=== PATIENT | female | born 1985 | race Caucasian/White ===

== ENCOUNTER 2023-08-10 21:42 | Emergency (ER) | payer MEDICAID, SELFPAY ==
--- NOTE | ~2023-08-10 | XR_ITS ---
EXAMINATION: XR BILATERAL HIPS WITH AP PELVIS CLINICAL INFORMATION: Fall. Nonverbal patient. Rule out fracture. COMPARISON: None available. TECHNIQUE: AP and frog-leg lateral views of each hip and an AP view of the pelvis. FINDINGS: Bones are osteopenic. No acute fracture or malalignment. Mild osteoarthritis is present in both hips with large acetabular osteophytes contributing to acetabular over coverage. SI joints are unremarkable. Phleboliths are present in the pelvis. No acute soft tissue findings. XR/XR hip BI w PEL1V IMPRESSION: 1. No acute fracture or malalignment identified in the pelvis and hips. 2. Mild osteoarthritis in the hips.
--- NOTE | ~2023-08-10 | CT_ITS ---
EXAMINATION: CT HEAD WITHOUT CONTRAST CLINICAL INFORMATION: Headache status-post fall. COMPARISON: CT brain dated 12/02/2016. TECHNIQUE: Contiguous axial imaging was performed from the skull base to vertex without intravenous administration of contrast. Multiplanar reformatted images are submitted. This CT examination was performed using dose optimization techniques as appropriate, variously including the following: *Automated exposure control *Adjustment of mA and/or kV according to patient size (this includes techniques or standardized protocols for targeted exams where dose is matched to indication/reason for exam; i.e. extremities or head) *Use of iterative reconstruction technique DLP: 1314 mGy-cm (head and cervical spine) FINDINGS: There is no acute intracranial hemorrhage or evidence of territorial infarction. No abnormal mass effect or midline shift is seen. Zamudio to white matter differentiation is well preserved. There is no abnormal attenuation within the brain parenchyma. The ventricles are normal in size. No extra-axial fluid collections are identified. There is an old, healed left frontoparietal craniotomy. Please correlate with the patient's past surgical history. The calvarium and scalp soft tissues are otherwise unremarkable. The middle ear cavity and mastoid air cells are clear. The visualized paranasal sinuses are clear. CT/CT cervical spine wo IV con IMPRESSION: No acute intracranial pathology. EXAMINATION: CT CERVICAL SPINE WITHOUT CONTRAST CLINICAL INFORMATION: Neck pain status-post trauma. COMPARISON: None available. TECHNIQUE: Contiguous axial imaging was performed through the cervical spine without intravenous administration of contrast. Multiplanar reformatted images are submitted. This CT examination was performed using dose optimization techniques as appropriate, variously including the following: *Automated exposure control *Adjustment of mA and/or kV according to patient size (this includes techniques or standardized protocols for targeted exams where dose is matched to indication/reason for exam; i.e. extremities or head) *Use of iterative reconstruction technique DLP: As above FINDINGS: Vertebral body heights are normal. There is mild reversal of the normal lordotic curvature. At C4-C5 and C5-C6, there is moderate disc space narrowing and spondylosis. The remaining disc spaces are well-maintained. No acute fracture or spondylolisthesis is seen. The posterior elements are intact. There is no prevertebral soft tissue swelling. The dens is intact. IMPRESSION: 1. No acute fracture or spondylolisthesis is seen. 2. At C4-C5 and C5-C6, there is moderate degenerative disc disease and spondylosis. 3. There is mild reversal of the normal lordotic curvature, which can be associated with muscle spasm. Fleischner guidelines were followed.
[2023-08-10 21:49] VITALS: BP 112/80; BP 113/92; PULSE 91; PULSE 95; RESP 16; TEMP 36.7; O2SAT 98; BMI 39.7
--- NOTE | 2023-08-10 22:06 | PC.NURSE ---
pt is on menstrual cycle, periwek in place
--- NOTE | 2023-08-10 22:12 | ED.FALL ---
HPI - Fall General Chief Complaint: Fall Stated Complaint: fall from bed, per ems Time Seen by Provider: 08/10/23 22:05 Source: patient Mode of arrival: ambulatory Limitations: no limitations History of Present Illness HPI Narrative: patient comes to the emergency room from [facility]. Earlier today, patient was found on the floor. Patient has history of lower in herself to the ground without falling. However, since she was found on the floor and it was unwitnessed, patient was sent to the emergency room for further evaluation. Patient has no complaints. According to [facility] medication notes, patient is not on blood thinners. Patient has history of chronic CVA and unable to give significant history Related Data Allergies Allergy/AdvReac Type Severity Reaction Status Date / Time Fish Containing Products Allergy Unknown UNKNOWN Unverified 08/04/20 17:50 latex [Latex] Allergy Unknown UNKNOWN Unverified 08/04/20 17:50 shellfish derived Allergy Unknown UNKNOWN Unverified 08/04/20 17:50 [SHELLFISH DERIVED] Latex Gloves Allergy Unknown Uncoded 07/08/14 00:00 Seafood Allergy Unknown UNKNOWN Uncoded 08/04/20 17:50 Review of Systems Review of Systems: Yes Unobtainable due to mental condition ( chronic CVA) [facility] Past Medical History Medical History (Updated 08/10/23 @ 23:09 by Radha Mcdowell MD) CVA (cerebral vascular accident) Social History Social History Advance Directives: No Advance Directives Information Provided: No Physical Exam Vital Signs: Vital Signs: Last Vital Signs Temp 98.1 F 08/10/23 21:49 Pulse 91 08/10/23 21:49 Resp 16 08/10/23 21:49 BP 113/92 H 08/10/23 21:49 O2 Del Method Room Air 08/10/23 21:49 BMI result Body Mass Index 39.7 Const: Other: Appearance: Alert. No acute distress. Eyes: Pupils equal, round and reactive to light. ENT: Pharynx normal. Neck: on C-spine precautions, no palpable step-offs, patient does not seem to have any pain on palpation CVS: Normal heart rate and rhythm. Pulses normal. Normal S1 and S2 Respiratory: No respiratory distress. Breath sounds normal. No Wheezing. No rales Abdomen: Soft and nontender. No rigidity. No distention. Skin: Skin warm and dry. Normal skin color. Normal skin turgor. Extremities: No lower extremity edema. No Lacerations. No Rash questionable pain on hip flexion and extension on the right Neuro: patient unable to participate in cranial nerve assessment Psych: calm, cooperative, Course Course Course Narrative: - patient unable to give any history - cervical spine and brain CT pending - x-ray of the hips right and left pending - patient does not seem to be in any pain. Medical Decision Making Medical Decision Making [facility] Narrative: - My interpretation head CT: No intracranial bleed - my interpretation of x-ray of the hip and pelvis: Normal alignment, no fracture, osteoarthritis bilaterally Differential Diagnosis Differential Diagnoses: The differential diagnosis associated with the presentation includes ( intracranial bleed, cervical spine fracture, hip fracture, contusion) Admission/Observation Consideration of admission/observation: Escalation of care including admission/observation considered ( given the patient's presentation, on arrival admission was considered) Independent Interpretation I performed an independent interpretation of an: Plain X-Ray and CT Scan Radiology Impression Discussion of test interpretation with radiology: I have reviewed the radiologist's reading. Radiologist Impression: FINDINGS: There is no acute intracranial hemorrhage or evidence of territorial infarction. No abnormal mass effect or midline shift is seen. Zamudio to white matter differentiation is well preserved. There is no abnormal attenuation within the brain parenchyma. The ventricles are normal in size. No extra-axial fluid collections are identified. There is an old, healed left frontoparietal craniotomy. Please correlate with the patient's past surgical history. The calvarium and scalp soft tissues are otherwise unremarkable. The middle ear cavity and mastoid air cells are clear. The visualized paranasal sinuses are clear. CT/CT head/brain wo IV con IMPRESSION: No acute intracranial pathology. EXAMINATION: CT CERVICAL SPINE WITHOUT CONTRAST CLINICAL INFORMATION: Neck pain status-post trauma. COMPARISON: None available. TECHNIQUE: Contiguous axial imaging was performed through the cervical spine without intravenous administration of contrast. Multiplanar reformatted images are submitted. This CT examination was performed using dose optimization techniques as appropriate, variously including the following: *Automated exposure control *Adjustment of mA and/or kV according to patient size (this includes techniques or standardized protocols for targeted exams where dose is matched to indication/reason for exam; i.e. extremities or head) *Use of iterative reconstruction technique DLP: As above FINDINGS: Vertebral body heights are normal. There is mild reversal of the normal lordotic curvature. At C4-C5 and C5-C6, there is moderate disc space narrowing and spondylosis. The remaining disc spaces are well-maintained. No acute fracture or spondylolisthesis is seen. The posterior elements are intact. There is no prevertebral soft tissue swelling. The dens is intact. IMPRESSION: 1. No acute fracture or spondylolisthesis is seen. 2. At C4-C5 and C5-C6, there is moderate degenerative disc disease and spondylosis. 3. There is mild reversal of the normal lordotic curvature, which can be associated with muscle spasm. Bones are osteopenic. No acute fracture or malalignment. Mild osteoarthritis is present in both hips with large acetabular osteophytes contributing to acetabular over coverage. SI joints are unremarkable. Phleboliths are present in the pelvis. No acute soft tissue findings. XR/XR hip BI w PEL1V IMPRESSION: 1. No acute fracture or malalignment identified in the pelvis and hips. 2. Mild osteoarthritis in the hips. Discharge Plan Discharge Clinical Impression: Unwitnessed fall Patient Disposition: Home, Self-Care Instructions: Fall Prevention (ED) Additional Instructions: Please follow-up with your primary care physician tomorrow. If you have any worsening or new symptoms, please return to the emergency room or call 911
--- NOTE | 2023-08-10 23:34 | PC.NURSE ---
Spoke to Yan at [facility] and gave report to him about patient returning back to facility
--- NOTE | 2023-08-11 00:33 | PC.NURSE ---
CHANGED PT BRIEF, CLEANED AND REPOSITIONED
== END 2023-08-11 00:53 ==
PROVIDERS: Emergency Provider Emergency Medicine; PCP Hospitalist
DX: Z03.89 Encounter for observation for other suspected diseases and conditions ruled out (principal); Z91.81 History of falling; Z86.73 Personal history of transient ischemic attack (TIA), and cerebral infarction without residual deficits
CPT/HCPCS: 70450; 72125; 73521; 99284

== ENCOUNTER 2025-01-19 15:58 | Emergency (ER) | payer MEDICAID, SELFPAY ==
[2025-01-19] VITALS (7 sets, daily range): BP systolic 111–146; BP diastolic 68–92; PULSE 16–98; RESP 14–16; TEMP 36.8–37.1; O2SAT 97–99; BMI 40.0
--- NOTE | ~2025-01-19 | XR_ITS ---
CLINICAL HISTORY: fall Chest Radiograph Comparison: CT/IA/SR - CHEST WITHOUT CONTRAST [id number] - 12/03/16 05:52 EST CR/IA - CHEST 1 VIEW [id number] - 12/02/16 22:45 EST Findings: No cardiomegaly. Normal mediastinal contours. No pneumothorax. No opacity. No pleural effusion. Normal upper abdomen. No acute fracture. Impression: No acute findings. This document has been electronically signed by: Destiny Gomez MD on 01/19/2025 17:56:05
--- NOTE | ~2025-01-19 | CT_ITS ---
CLINICAL HISTORY: ams from prior, r o [facility] CT head without contrast Comparison: 08/10/2023 Findings: No intracranial mass, midline shift, hydrocephalus, or acute hemorrhage. No acute process in sinuses or mastoids. No acute bony abnormality. Prior left frontoparietal craniotomy. Impression: No acute intracranial process This document has been electronically signed by: Nico Preciado MD on 01/19/2025 22:54:05
--- NOTE | ~2025-01-19 | CT_ITS ---
CLINICAL HISTORY: found on floor, ?fall CT cervical spine without contrast Comparison: 08/10/2023 Findings: No acute fracture or dislocation is demonstrated. Posterior alignment is normal throughout. Multilevel mild degenerative change noted. No radiopaque foreign bodies noted. Impression: No acute processes This document has been electronically signed by: Nico Preciado MD on 01/19/2025 18:22:23
--- NOTE | ~2025-01-19 | CT_ITS ---
CLINICAL HISTORY: found on floor, ?fall, +eliquis CT head without contrast Comparison: 08/10/2023 Findings: No intracranial mass, midline shift, hydrocephalus, or acute hemorrhage. Mild chronic ischemic white matter disease without volume loss. Chronic disease is prominent for patient's age, please correlate. No acute process in sinuses or mastoids. No acute bony abnormality. Status post left anterior parietal craniotomy. Impression: No acute intracranial process This document has been electronically signed by: Nico Preciado MD on 01/19/2025 18:36:13
--- NOTE | 2025-01-19 16:35 | ECG_ITS ---
Test Reason : FALL Blood Pressure : */* mmHG Vent. Rate : 85 BPM Atrial Rate : 85 BPM P-R Int : 140 ms QRS Dur : 74 ms QT Int : 350 ms P-R-T Axes : 45 25 26 degrees QTcB Int : 416 ms Normal sinus rhythm Normal ECG When compared with ECG of 03-Dec-2016 05:16, Nonspecific T wave abnormality, improved in Inferior leads Nonspecific T wave abnormality no longer evident in Anterolateral leads Referred By: Doris Gee Electronically Signed By: JAIME FLORES MD
[2025-01-19 17:41] LABS: MANUAL DIFF FLAG NO
[2025-01-19 17:44] LABS: Basophils Percent Auto 0.3 % (0-2); Eosinophils Absolute Auto 0.1 X10*3/uL (0.0-0.4); Eosinophils Percent Auto 0.7 % (0-4); Hematocrit 43.4 % (37.0-47.0); Hemoglobin 14.2 g/dl (12.0-16.0); Imm Gran Abs Auto 0.02 X10*3/uL (0.00-0.03); Imm Gran Pct Auto 0.3 % (0.0-0.4); Lymphocytes Absolute Auto 1.3 X10*3/uL (1.2-4.9); Lymphocytes Percent Auto 17.8 % (20-40); Mean Corpuscular HGB Conc 32.7 g/dl (31.0-35.0); Mean Corpuscular Hemoglobin 30.3 pg (27.0-33.0); Mean Corpuscular Volume 92.7 fL (80.0-98.0); Mean Platelet Volume 9.8 fL (9.4-12.3); Monocytes Absolute Auto 0.4 X10*3/uL (0.1-1.2); Neutrophils Absolute Auto 5.5 x10*3/uL (2.0-8.3); Neutrophils Percent Auto 75.9 % (45-73); Platelet Count 208 X10*3/uL (160-400); Red Blood Count 4.68 X10*6/uL (4.20-5.50); Red Cell Distribution Width 12.2 % (11.0-16.0); White Blood Count 7.2 X10*3/uL (4.8-10.8)
[2025-01-19 17:49] LABS: INTERNATIONAL NORM RATIO 1.1 (0.9-1.1); Prothrombin Time 13.1 SEC (10.9-12.4)
[2025-01-19] MEDS: Acetaminophen 325 MG TABLET 975 MG PO (17:51)
[2025-01-19 18:00] LABS: Alanine Aminotransferase 18 U/L (0-31); Albumin Level 3.5 g/dL (3.5-5.0); Alkaline Phosphatase 139 U/L (39-117); Anion Gap 10 (12-20); Aspartate Amino Transferase 20 U/L (5-31); Bilirubin Total 0.1 mg/dL (0.0-1.0); Blood Urea Nitrogen 4 mg/dL (9-16); Calcium 8.3 mg/dL (8.4-10.2); Carbon Dioxide 27 mmol/L (22-29); Chloride 108 mmol/L (96-108); Estimated Glomerular Filt Rate > 60; Glucose Random 90 mg/dL (60-115); Potassium 3.6 mmol/L (3.3-5.1); Sodium 141 mmol/L (135-145); Total Protein 7.1 g/dL (6.5-8.0)
[2025-01-19 18:04] LABS: Troponin-I High Sensitivity < 2.7 ng/L (<3.5-17.0)
[2025-01-19 18:21] LABS: Influenza A PCR NEGATIVE (Negative); Influenza B PCR NEGATIVE (Negative); Resp Syncy Virus RNA Qual PCR NEGATIVE (Negative); SARS COV2 PCR INHOUSE NEGATIVE (Negative)
--- NOTE | 2025-01-19 19:28 | ED_ITS ---
HPI - Fall General Chief Complaint: Fall Stated Complaint: Fall Time Seen by Provider: 01/19/25 16:28 Source: patient Limitations: no limitations History of Present Illness HPI Narrative: Patient is a 39-year-old female who presents emergency department via EMS coming from [facility] facility after an unwitnessed fall presumably out of bed, found on floor next to bed. When asked, patient states that she is having pain in her head in endorses pain to the right side of her head. She is not able to provide meaningful history as to what may have occurred or what resulted in the fall. She is nonambulatory at baseline. When asked review of symptoms she otherwise provides negative answers, including denying vision changes, chest pain, shortness of breath, neck pain, abdominal pain, nausea. difficult to determine how accurate of a historian she may be. Related Data Allergies Allergy/AdvReac Type Severity Reaction Status Date / Time Fish Containing Products Allergy Unknown UNKNOWN Verified 01/19/25 16:20 latex [Latex] Allergy Unknown UNKNOWN Verified 01/19/25 16:20 shellfish derived Allergy Unknown UNKNOWN Verified 01/19/25 16:20 [SHELLFISH DERIVED] Latex Gloves Allergy Unknown Unknown Uncoded 01/19/25 16:20 Seafood Allergy Unknown UNKNOWN Uncoded 01/19/25 16:20 Review of Systems 2 Review of Systems: Yes all other systems are reviewed and are negative PMFSH Past Medical History Attestation statement: The following information was validated with the patient. Source: old records reviewed Medical History (Updated 01/19/25 @ 19:37 by Doris Gee CNP) CVA (cerebral vascular accident) Social History Social History Advance Directives: No Advance Directives Information Provided: No Do you have a plan to hurt others: No Plan Physical Exam 2 Vital Signs: Vital Signs: Last Vital Signs Temp 98.6 F 01/19/25 22:00 Pulse 16 L 01/19/25 22:00 Resp 14 01/19/25 22:00 BP 119/83 01/19/25 22:00 Pulse Ox 98 01/19/25 22:00 O2 Del Method Room Air 01/19/25 22:00 O2 Flow Rate 98 01/19/25 21:52 BMI result Body Mass Index 40.0 Appearance: Alert.?Oriented to person, place and time. No acute distress.?Normal affect. Head: Normocephalic, atraumatic Eyes: Pupils equal, round and reactive to light.? EOMI. No palpable periorbital deformities or ecchymosis ENT: Pharynx normal.??TM normal bilaterally. No rhinorrhea. No septal hematoma. TM normal bilaterally Neck: Normal inspection.? Neck supple.??No midline cervical spine tenderness, step-offs, deformities. Back: No midline thoracic or lumbar spine tenderness, step-offs, deformities. CVS: Heart sounds normal. Normal heart rate and rhythm.? Pulses normal.?? Respiratory: No respiratory distress.? Lung sounds clear to auscultation bilaterally?? Abdomen: Soft and non-tender. Normoactive bowel sounds Skin: Skin warm and dry.? Normal skin color.? Extremities: No lower extremity edema.? No calf ttp. Full range of motion to bilateral upper and lower extremities. 2+ DP/PT pulse, 2+ radial pulse bilaterally. Neuro: Moves all extremities spontaneously. Sensation intact bilaterally. CN II- XII intact. No focal neuro deficits. Course Reevaluation(s) Reevaluation #1: EMS here to transfer patient back to [facility]. She is noted to be a bit more drowsy than she was earlier, with verbal stimuli she is not very responsive, responsive to painful stimuli. However, she does have dolls/stop the animals that she has been holding in her arms since her arrival, when I remove them from her she purposefully opens her eyes and reaches to grab them to place them back though she is noted to be less aggressive/intense interactions when they are taken away than she was earlier today. Obtaining repeat head CT to exclude delayed ICH. Vital signs are stable. Point of care glucose 79, will keep NPO at this time provide with 15 g glucose gel. Time: 22:03 Reevaluation #2: CT head without contrast Comparison: 08/10/2023 Findings: No intracranial mass, midline shift, hydrocephalus, or acute hemorrhage. No acute process in sinuses or mastoids. No acute bony abnormality. Prior left frontoparietal craniotomy. Impression: No acute intracranial process Clear For discharge back to facility Time: 23:03 Medications Administered Discontinued Medications Generic Name Dose Route Start Last Admin Trade Name Freq PRN Reason Stop Dose Admin Acetaminophen 975 mg 01/19/25 16:47 01/19/25 17:51 Acetaminophen 325 Mg Tablet PO 01/19/25 16:48 975 mg ONCE ONE Administration Medical Decision Making Medical Decision Making [facility] Narrative: Patient is a 39-year-old female with past medical history of bipolar disorder, anxiety, hypothyroidism, GERD, CVA with resultant hemiplegia and hemiparesis, mild intellectual disability, type 2 diabetes, cardiac tamponade, unspecified convulsions, 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 She is nonambulatory at baseline. Not a purposeful historian. She did endorse pain to the right side of her head when asked, provided with a acetaminophen and when asked afterwards she denies any pain. Obtained serum labs to exclude alternative possibility for fall, CBC without leukocytosis anemia or thrombocytopenia. No electrolyte derangement. No BRE. LFTs overall unremarkable. High sensitive troponin below detectable limits an EKG reveals normal sinus rhythm with ventricular rate of 85, QTC 416, no ST elevation. CT of the head and cervical spine is without acute pathology, hard cervical spine collar cleared. At this time feel that she is stable for discharge back to snf facility. Differential Diagnosis Differential Diagnoses: The differential diagnosis associated with the presentation includes (ICH, SDH, fracture, subluxation, see additional narrative above) Admission/Observation Consideration of admission/observation: Escalation of care including admission/observation considered Lab Data [facility] Lab Attestation statement: I reviewed the patient's lab results. (See narrative above) 01/19/25 17:31 01/19/25 17:31 Labs: Lab Results 01/19/25 01/19/25 Range/Units 17:31 21:56 WBC 7.2 (4.8-10.8) X10*3/uL RBC 4.68 (4.20-5.50) X10*6/uL Hgb 14.2 (12.0-16.0) g/dl Hct 43.4 (37.0-47.0) % MCV 92.7 (80.0-98.0) fL MCH 30.3 (27.0-33.0) pg MCHC 32.7 (31.0-35.0) g/dl RDW 12.2 (11.0-16.0) % Plt Count 208 (160-400) X10*3/uL MPV 9.8 (9.4-12.3) fL Immature Gran % (Auto) 0.3 (0.0-0.4) % Neut % (Auto) 75.9 H (45-73) % Lymph % (Auto) 17.8 L (20-40) % Howard % (Auto) 5.0 (2-11) % Eos % (Auto) 0.7 (0-4) % Baso % (Auto) 0.3 (0-2) % Lymph # (Auto) 1.3 (1.2-4.9) X10*3/uL Howard # (Auto) 0.4 (0.1-1.2) X10*3/uL Eos # (Auto) 0.1 (0.0-0.4) X10*3/uL Baso # (Auto) 0.0 (0.0-0.2) X10*3/uL Abs Immat Gran (auto) 0.02 (0.00-0.03) X10*3/uL Absolute Neuts (auto) 5.5 (2.0-8.3) x10*3/uL Absolute Nucleated RBC 0.000 (0.0-0.012) X10*3/uL Nucleated RBC % (auto) 0.0 (0.0-0.2) /100WBC PT 13.1 H (10.9-12.4) SEC INR 1.1 (0.9-1.1) Sodium 141 (135-145) mmol/L Potassium 3.6 (3.3-5.1) mmol/L Chloride 108 (96-108) mmol/L Carbon Dioxide 27 (22-29) mmol/L Anion Gap 10 L (12-20) BUN 4 L (9-16) mg/dL Creatinine 0.55 (0.5-1.4) mg/dL Estim Creat Clear Calc 154.0 Estimated GFR > 60 POC Glucose 78 (60-115) mg/dL Random Glucose 90 (60-115) mg/dL Calcium 8.3 L (8.4-10.2) mg/dL Magnesium 2.0 (1.6-2.6) mg/dL Total Bilirubin 0.1 (0.0-1.0) mg/dL AST 20 (5-31) U/L ALT 18 (0-31) U/L Alkaline Phosphatase 139 H (39-117) U/L Troponin I High Sens < 2.7 (<3.5-17.0) ng/L Total Protein 7.1 (6.5-8.0) g/dL Albumin 3.5 (3.5-5.0) g/dL Influenza Type A (PCR) NEGATIVE (Negative) Influenza Type B (PCR) NEGATIVE (Negative) RSV RNA Qual (PCR) NEGATIVE (Negative) SARS-CoV-2 RNA (RT-PCR) NEGATIVE (Negative) Independent Interpretation I performed an independent interpretation of an: EKG (See narrative above) and CT Scan (No ICH) Radiology Impression Discussion of test interpretation with radiology: I have reviewed the radiologist's reading. Radiologist Impression: Impression: CT head No acute intracranial process Impression: CT cervical spine No acute processes Impression: 1view CXR No acute findings. Independent Historian Clinical information obtained from an independent historian. History obtained from or confirmed by: EMS External Record Review External record reviewed: Outpatient record Discharge Plan Discharge Clinical Impression: Head injury, Fall Patient Disposition: Xfer SNF Transfer Details: [facility] Interventions: ED Discharge Assessment Last Done: 01/19/25 21:52 Print Language: Frisian
--- OUTSIDE RECORDS SUMMARY | 2025-01-19 20:36 | XMS_ITS | Encounter Summary ---
Author Organization [employer] Address [address] [place] [address] Care Team Providers Care Bacon Slicer Name Role Phone Unavailable Primary Care Provider Unavailabl e Encounter Details Date Type Department Care Team (Late st Contact Info) Description 11/24/2024 Lab Requisition [facility] - Main Lab [address] [place] [address] Josué Stringer MD [address] [place] [address] [address] [place], [place] Bipolar disorder, unspecified (CMS/HCC) Social History Tobacco Use Types Packs/Day Years Used Date Smoking Tobacco: Never Assessed Comments Unknown Sex and Gender Information Value Date Recorded Sex Assigned at Not on file Legal Sex Female 5:08 AM EST Gender Identity Not on file Sexual Orientation Not on file documented as of this encounter Plan of Treatment Not on file documented as of this encounter Procedures Procedure Name Priority Date/Time Associated Diagnosis Comments THYROID STIMULATING HORMONE Routine 11/24/2024 6:45 AM EST Bipolar disorder, unspecified (CMS/HCC) THYROXINE FREE Routine 11/24/2024 6:45 AM EST Bipolar disorder, unspecified (CMS/HCC) HEMOGLOBIN A1C Routine 11/24/2024 6:45 AM EST Bipolar disorder, unspecified (CMS/HCC) documented in this encounter Results * Thyroxine free (11/24/2024 6:45 AM EST) Free T4 1.07 0.70 - 1.80 ng/dL LAB CHEMISTRY METHOD 11/24/2024 8:10 AM EST [facility] ([facility]) [facility] Blood Venous blood specimen / Unknown 11/24/2024 6:45 AM EST 11/24/2024 7:30 AM EST us Josué Stringer MD LAB BLOOD ORDERABLES Final Resul t Performing Organization Address City/[facility]/ZIP Co de Phone Number [facility] [address] [place] [address], [place] [phone] * Thyroid stimulating hormone (11/24/2024 6:45 AM EST) TSH 1.47 0.40 - 4.00 mcIU/mL LAB CHEMISTRY METHOD 11/24/2024 8:10 AM EST [facility] Blood Venous blood specimen / Unknown 11/24/2024 6:45 AM EST 11/24/2024 7:30 AM EST us Josué Stringer MD LAB BLOOD ORDERABLES Final Resul t Performing Organization Address [facility] de Phone Number [facility] [address] [place] [address], [place] [phone] * Hemoglobin A1c (11/24/2024 6:45 AM EST) Hemoglobin A1C 4.8 <6.5 % LAB CHEMISTRY METHOD 11/24/2024 11:05 AM EST [facility] Mean Bld Glu Estim. 91 mg/dL LAB CHEMISTRY METHOD 11/24/2024 11:05 AM EST [facility] Blood Venous blood specimen / Unknown 11/24/2024 6:45 AM EST 11/24/2024 7:30 AM EST us Josué Stringer MD LAB BLOOD ORDERABLES Final Resul t Performing Organization Address City/[facility]/ZIP Co de Phone Number [facility] [address] [place] [address], [place] [phone] documented in this encounter Visit Diagnoses Diagnosis Bipolar disorder, unspecified (CMS/HCC) Bipolar disorder, unspecified documented in this encounter
--- OUTSIDE RECORDS SUMMARY | 2025-01-19 20:36 | XMS_ITS | Encounter Summary ---
Author Organization [facility] Address [address] [place] [address] Care Team Providers Care Taping Machine Operator Name Role Phone Unavailable Primary Care Provider Unavailabl e Encounter Details Date Type Department Care Team (Late st Contact Info) Description 09/30/2024 Lab Requisition [facility] - Main Lab [address] [place] [address] Josué Stringer MD [address] [place] [address] [address] [place], [place] Other terminal gauger (current) drug therapy Social History Tobacco Use Types Packs/Day Years [...] Procedure Name Priority Date/Time Associated Diagnosis Comments PHENYTOIN LEVEL, TOTAL Routine 09/30/2024 6:25 AM EST Other terminal gauger (current) drug therapy documented in this encounter Results * (ABNORMAL) Phenytoin level total (09/30/2024 6:25 AM EST) Phenytoin Level 4.3(L) 10.0 - 20.0 mcg/mL LAB CHEMISTRY METHOD 09/30/2024 10:[address] [facility] Blood Venous blood specimen / Unknown 09/30/2024 6:25 AM EST 09/30/2024 9:39 AM EST us Josué Stringer MD LAB BLOOD ORDERABLES Final Resul t [facility] [address] [place], [place] [address] [phone] documented in this encounter Visit Diagnoses Diagnosis Other half-way (current) drug therapy documented in this encounter
--- OUTSIDE RECORDS SUMMARY | 2025-01-19 20:36 | XMS_ITS | Clinical Summary ---
Author Organization [address] [facility] Address [address] [place] [address] Phone Care Team Providers Care Behavioral Therapy Coordinator Name Role Phone Unavailable Primary Care Provider Unavailabl e Encounters Date Type Department Care Team Description 11/24/2024 Lab Requisition [facility] - Main Lab [address] [facility] [place] [address] Josué Stringer MD Bipolar disorder, unspecified (CMS/HCC) from Last 3 Months Social History Tobacco Use Types Packs/Day Years Used Date Smoking Tobacco: Never Assessed Comments Unknown Sex and Gender Information Value Date Recorded Sex Assigned at Not on file Legal Sex Female 5:08 AM EST Gender Identity Not on file Sexual Orientation Not on file Plan of Treatment Health Maintenance Due Date Last Done Comments DTaP,Tdap,and Td Vaccines (1 - Tdap) 2006 Hepatitis B Vaccines (1 of 3 - 19+ 3-dose series) 2006 Cervical Cancer Screening: P ap Smear 2008 Depression Screening 10/21/2022 HIV Screening 10/21/2022 Hepatitis C Screening 10/21/2022 Social Influencers of Health Screening 10/21/2022 COVID-19 Vaccine ( - 2023-2 5 season) 2024 Influenza Vaccine (#1) 2024 HIB Vaccines Aged Out No longer eligi ble based on patient's age to complete this topic HPV Vaccines Aged Out No longer eligi ble based on patient's age to complete this topic Hepatitis A Vaccines Aged Out No long er eligible based on patient's age to complete this topic IPV Vaccines Aged Out No longer eligi ble based on patient's age to complete this topic MMR Vaccines Aged Out No longer eligi ble based on patient's age to complete this topic Meningococcal ACWY Vaccine Aged Out N o longer eligible based on patient's age to complete this topic Meningococcal B Vacine Aged Out No lo nger eligible based on patient's age to complete this topic Pneumococcal Vaccine: Pediat rics (0 to 5 Years) and At-Risk Patients (6 to 64 Years) Aged Out No longer eligible b ased on patient's age to complete this topic RSV Immunization Patients Un williams 20 months Aged Out No longer eligible b ased on patient's age to complete this topic Varicella Vaccines Aged Out No longer eligible based on patient's age to complete this topic Procedures Procedure Name Priority Date/Time Associated Diagnosis Comments THYROXINE FREE Routine 11/24/2024 6:45 AM EST Bipolar disorder, unspecified (CMS/HCC) THYROID STIMULATING HORMONE Routine 11/24/2024 6:45 AM EST Bipolar disorder, unspecified ([facility]/HCC) HEMOGLOBIN A1C Routine 11/24/2024 6:45 AM EST Bipolar disorder, unspecified (CMS/HCC) from Last 3 Months Results * Thyroid stimulating hormone (11/24/2024 6:45 AM EST) TSH 1.47 0.40 - 4.00 mcIU/mL LAB CHEMISTRY METHOD 11/24/2024 8:10 AM EST [facility] Blood Venous blood specimen / Unknown 11/24/2024 6:45 AM EST 11/24/2024 7:30 AM EST us Josué Stringer MD LAB BLOOD ORDERABLES Final Resul t [facility] [address] [place] [address], * Thyroxine free (11/24/2024 6:45 AM EST) Free T4 1.07 0.70 - 1.80 ng/dL LAB CHEMISTRY METHOD 11/24/2024 8:10 AM EST [facility] Blood Venous blood specimen / Unknown 11/24/2024 6:45 AM EST 11/24/2024 7:30 AM EST us Josué Stringer MD LAB BLOOD ORDERABLES Final Resul t [facility] [address] [place] [address], [place] [phone] * Hemoglobin A1c (11/24/2024 6:45 AM EST) Hemoglobin A1C 4.8 <6.5 % LAB CHEMISTRY METHOD 11/24/2024 11:05 AM EST [facility] Mean Bld Glu Estim. 91 mg/dL LAB CHEMISTRY METHOD 11/24/2024 11:05 AM EST [facility] Blood Venous blood specimen / Unknown 11/24/2024 6:45 AM EST 11/24/2024 7:30 AM EST us Josué Stringer MD LAB BLOOD ORDERABLES Final Resul t Performing Organization Address City/[facility] Co de Phone Number [facility] [address] [place] [address], [place] [phone] from Last 3 Months Insurance [place]ICAID - [id number]
--- NOTE | 2025-01-19 21:52 | PC.NURSE ---
Nurse to nurse report given to nurse Kurtz over at [facility]. Pt is returning via EMS.
[2025-01-19 22:00] LABS: Glucose, Whole Blood 78 mg/dL (60-115)
--- NOTE | 2025-01-19 22:01 | PC.NURSE ---
During transfer to the EMS stretcher pt was difficult to awaken and responded sluggish after numerous attempts. Responds to painful stimuli. VSS. Pt awaken when stuffed animals removed. MDL at bedside. Pt will not be transferred at this time for further imaging and observation. [facility] Notified.
[2025-01-19] MEDS: Glucose Gel 15 GM GEL..GRAM. PO (23:31)
[2025-01-20 01:37] VITALS: BP 136/92; PULSE 83; RESP 16; TEMP 37.1; O2SAT 99
--- NOTE | 2025-01-20 01:37 | PC.NURSE ---
Nurse to nurse report provided to nurse Tsai at [facility] as pt is returning via EMS
== END 2025-01-20 01:32 | disposition skilled nursing facility (03) ==
PROVIDERS: Nurse Practitioner Family; Emergency Provider Emergency Medicine Emergency Medical Services; PCP Hospitalist
DX: S09.90XA Unspecified injury of head, initial encounter (principal); M54.2 Cervicalgia; R51.9 Headache, unspecified; R07.89 Other chest pain; F79 Unspecified intellectual disabilities; E11.9 Type 2 diabetes mellitus without complications; W19.XXXA Unspecified fall, initial encounter; Y93.9 Activity, unspecified; Y92.092 Bedroom in other non-institutional residence as the place of occurrence of the external cause; Y99.8 Other external cause status; Z79.01 Long term (current) use of anticoagulants; Z79.899 Other long term (current) drug therapy; Z03.818 Encounter for observation for suspected exposure to other biological agents ruled out
CPT/HCPCS: 0241U; 70450; 71045; 72125; 80053; 82947; 83735; 84484; 85025; 85610; 93005; 99284

== ENCOUNTER → 2025-01-19 16:34 | Outpatient (BNV) | payer MEDICAID, SELFPAY | PROVIDERS: Visit Provider Radiology Diagnostic Radiology | DX: R41.82 Altered mental status, unspecified (principal); W19.XXXA Unspecified fall, initial encounter | CPT/HCPCS: 70450; 71045; 72125 ==

== ENCOUNTER → 2025-01-19 16:35 | Outpatient (BNV) | payer MEDICAID, SELFPAY | PROVIDERS: Emergency Provider Emergency Medicine Emergency Medical Services; PCP Hospitalist; Visit Provider Internal Medicine Cardiovascular Disease | DX: S09.90XA Unspecified injury of head, initial encounter (principal); W19.XXXA Unspecified fall, initial encounter | CPT/HCPCS: 93010 ==